=== PATIENT | female | born 1990 | race Caucasian/White ===

== ENCOUNTER 2024-07-24 09:28 | Outpatient (AMB) | payer OTHER, SELFPAY ==
--- NOTE | 2024-07-24 09:30 | MHC.PC.OV ---
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 Maker Required: No Allergies contrast dye Allergy (Severe, Uncoded 07/24/24 09:34) elevated heart rate Tobacco use date assessed: 07/24/24 Dental Screening Dental Screen Date: 07/24/24 Did you have a dental visit in the last 12 months?: Yes Did you have a dental problem in the last 6 months where you did not have access to dental care?: No Was dental information given to patient?: Patient has dentist HPI HPI Comments History of Present Illness Details 33-year-old female with a past medical history of PCOS, arachnoid cyst, seizure, low blood pressure and palpitations [facility]. She transferred from [facility], but she is a new patient to [facility]. She lives with her and her 2 sons. Her last physical exam was in September or October of 2023, but she did not have blood work done. Patient is seeing Dr. Alvarez for low blood pressure and palpitations. She reports she had a Holter monitor which showed premature atrial or ventricular contractions. Symptoms began about a year ago. She has a tilt test scheduled next week. Patient said she had an echocardiogram which showed something that was abnormal. She had a negative stress test. No syncope or chest pain. Patient has 2 children. She has PCOS. They are trying for a 3rd, but if they try for a year on successfully she does not plan to pursue it further. 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 Patient was followed by [facility] Neurology. She had a seizure a few years ago after a flight. This led to a diagnosis of an arachnoid cyst. They told her that the pressure descending on the plane and the location of the arachnoid cyst caused the seizure. She was never prescribed anticonvulsive medication. They told her to avoid activities like scuba diving. She was having an MRI done yearly because she had headaches, but the headaches stopped, and then she was discharged from Neurology follow up instructed to return if she has recurrent headaches or other concerning symptoms. Declines influenza vaccine. ROS: Constitutional: No unexplained weight loss, fever, chills, fatigue or night sweats. Eyes: No vision changes, blurry vision, double vision, eye pain, eye redness, eye discharge. ENT: No hearing loss, sneezing, congestion, runny nose or sore throat. Respiratory: No shortness of breath, cough or sputum production. Cardiovascular: No chest pain or pedal edema. See HPI. Neurologic: No headache, syncope, unilateral weakness, ataxia, numbness or tingling in the extremities. Psychiatric: No depression or anxiety. Physical exam: Constitutional: Alert, in no distress. Neck: Supple, Full range of motion. No lymphadenopathy. No palpable thyroid masses. Respiratory: Clear to auscultation. Cardiovascular: S1 S2 regular. No murmurs. Gastrointestinal: Abdomen soft, non-tender, non-distended. Normal bowel sounds. No palpable masses. Neurologic: No focal neurological deficits. Psychiatric: Normal mood and affect [facility] Medical History (Updated 07/24/24 @ 10:44 by CHERI Mcmullen) Low blood pressure Palpitations PCOS (polycystic ovarian syndrome) Arachnoid cyst Seizure Surgical History (Updated 07/24/24 @ 10:44 by CHERI Mcmullen) H/O section Family History (Updated 07/24/24 @ 09:35 by Santa Emanuel CMA) Mother Lung cancer Social History (Updated 07/24/24 @ 09:36 by Santa Emanuel CMA) Housing: House Alcohol intake: current Patient Tobacco Use Status: Never used Tobacco e-Cigarette/Vaping Use: Never Used Second Hand Smoke Exposure: Yes (past) service: No Current occupational status: employed and unemployed 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 1. Little interest or pleasure in doing things: not at all 2. Feeling down, depressed, or hopeless: not at all 3. Trouble falling or staying asleep, or sleeping too much: not at all 4. Feeling tired or having little energy: several days 5. Poor appetite or overeating: several days 6. Feeling bad about yourself - or that you are a failure or have let yourself or your family down: not at all 7. Trouble concentrating on things, such as reading the newspaper or watching television: not at all 8. Moving or speaking so slowly that other people could have noticed. Or the opposite - being so fidgety or restless that you have been moving around a lot more than usual: not at all 9. Thoughts that you would be better off or of hurting yourself in some way: not at all Total score: 2 Depression Screening Interpretation: Negative Depression Screening Done: Yes 25493 - PHQ-9 Billing: Yes Source: Developed by Drs. Luis Cotter, Fanny Mobley, Carlos Hathaway and colleagues, with an educational ricci from [employer]. Thrive Questionnaire Date Thrive assessed: 07/17/24 I am a: Patient What is your living situation today?: I have a steady place to live Within the past 12 months, did the food you bought not last and you didn't have the money to get more?: Never true Within the past 12 months, did you worry whether your food would run out before you got money to buy more?: Never true Do you have trouble paying for medicines?: No Do you have trouble getting transportation to medical appointments?: No Do you have trouble paying your heating and electricity bill?: No Do you have trouble taking care of your child, family member or friend?: No Do you have trouble with day-to-day activities such as bathing, preparing meals, shopping, managing finances, etc.?: No Are you currently unemployed and looking for a job?: No Are you interested in more education?: Yes Please select the resources that you would like help with: None Currently or been in a relationship where the following occur: No concerns reported THRIVE Score: 0 AUDIT C Alcohol Use Questionnaire (AUDIT-C) 1. How often do you have a drink containing alcohol?: Monthly or less 2. How many drinks containing alcohol do you have on a typical day when you are drinking?: 1 or 2 3. How often do you have six or more drinks on one occasion?: Never Total Score: 1 AVIVA-7 AMB Questionnaire AVIVA-7 Date AVIVA - 7 assessed: 07/24/24 Feeling nervous, anxious, or on edge: 0 = Not at all Not being able to stop or control worryin = Several days Worrying too much about different things: 1 = Several days Trouble relaxin = Several days Being so restless that it is hard to sit still: 1 = Several days Becoming easily annoyed or irritable: 1 = Several days Feeling afraid as if something awful might happen: 0 = Not at all Total AVIVA-7 score (0-4 normal; 5-9 mild; 10-14 moderate; 15-21 severe): 5 Source: Developed by Drs. Luis Cotter, Fanny Mobley, Carlos Hathaway and colleagues, with an educational ricci from [employer]. AVIVA-7 Assessment Billing AVIVA-7 Assessment Tool: AVIVA-7 Assessment 76362 Physical exam (Primary Care) Vital Signs: Last Vital Signs Pulse 66 07/24/24 09:37 BP 86/62 L 07/24/24 09:37 Pulse Ox 97 07/24/24 09:37 Oxygen Delivery Method Room Air 07/24/24 09:37 BMI result Body Mass Index 29.8 Tobacco/Smoking Status: Tobacco use Status Tobacco use date assessed 07/24/24 07/24/24 09:39 Patient Tobacco Use Status Never used Tobacco 07/24/24 09:39 e-Cigarette/Vaping Use Never Used 07/24/24 09:39 PHQ-9: PHQ-9 Score PHQ-9: Total score 2 07/24/24 09:39 Depression Screening Interpretation: Negative Thrive Assessment: Date of Thrive Assessment Date Thrive assessed 07/17/24 07/24/24 09:32 Currently or been in a relationship where the following occur: No concerns reported Coding Level of Care Code New Pt Level 4 (60271) Complex EM visit Add On G2211 Diagnoses Low blood pressure I95.9 Palpitations R00.2 PCOS (polycystic ovarian syndrome) E28.2 Arachnoid cyst G93.0 Seizure R56.9 Additional Codes AVIVA-7 Assessment Billing - AVIVA-7 Assessment Tool: AVIVA-7 Assessment 29277 ([id number]) PHQ-9 - 95194 - PHQ-9 Billing: Yes ([id number]) Assessment & Plan Assessment & Plan (1) Low blood pressure: Code(s): I95.9 - Hypotension, unspecified Category: Medical (2) Palpitations: Code(s): R00.2 - Palpitations Category: Medical (3) PCOS (polycystic ovarian syndrome): Code(s): E28.2 - Polycystic ovarian syndrome Category: Medical (4) Arachnoid cyst: Code(s): G93.0 - Cerebral cysts Category: Medical (5) Seizure: Code(s): R56.9 - Unspecified convulsions Category: Medical Plan Awaiting transfer records from [facility] primary care, [facility] Neurology and [facility] Cardiology. She will schedule a physical exam for 2024. She will have fasting labs completed. She is followed by Cardiology for low blood pressure and palpitations. Tilt test is scheduled next week. I will review the notes from Neurology, but per patient she does not have to follow up or have additional MRI unless she develops headaches or other symptoms. Orders: Orders Cortisol Random Today E28.2 - Polycystic ovarian syndrome, G93.0 - Cerebral cysts, I95.9 - Hypotension, unspecified, R00.2 - Palpitations, R56.9 - Unspecified convulsions, Z13.6 - Encounter for screening for cardiovascular disorders Magnesium Today E28.2 - Polycystic ovarian syndrome, G93.0 - Cerebral cysts, I95.9 - Hypotension, unspecified, R00.2 - Palpitations, R56.9 - Unspecified convulsions, Z13.6 - Encounter for screening for cardiovascular disorders Complete Blood Count no Diff Today E28.2 - Polycystic ovarian syndrome, G93.0 - Cerebral cysts, I95.9 - Hypotension, unspecified, R00.2 - Palpitations, R56.9 - Unspecified convulsions, Z13.6 - Encounter for screening for cardiovascular disorders TSH reflex Free T4 Today E28.2 - Polycystic ovarian syndrome, G93.0 - Cerebral cysts, I95.9 - Hypotension, unspecified, R00.2 - Palpitations, R56.9 - Unspecified convulsions, Z13.6 - Encounter for screening for cardiovascular disorders Lipid Panel Today E28.2 - Polycystic ovarian syndrome, E78.5 - Hyperlipidemia, unspecified, G93.0 - Cerebral cysts, I95.9 - Hypotension, unspecified, R00.2 - Palpitations, R56.9 - Unspecified convulsions, Z13.6 - Encounter for screening for cardiovascular disorders Comprehensive Met. Panel Today E28.2 - Polycystic ovarian syndrome, G93.0 - Cerebral cysts, I95.9 - Hypotension, unspecified, R00.2 - Palpitations, R56.9 - Unspecified convulsions, Z13.6 - Encounter for screening for cardiovascular disorders
[2024-07-24 09:37] VITALS: BP 86/62; PULSE 66; O2SAT 97; BMI 29.8
== END 2024-07-24 10:18 | disposition home or self-care (01) ==
PROVIDERS: PCP Physician Assistant Medical; Visit Provider Physician Assistant Medical
DX: I95.9 Hypotension, unspecified (principal); R00.2 Palpitations; R56.9 Unspecified convulsions; E28.2 Polycystic ovarian syndrome; G93.0 Cerebral cysts

== ENCOUNTER → 2024-07-24 09:28 | Outpatient (BNVA) | payer OTHER, SELFPAY | PROVIDERS: PCP Physician Assistant Medical; Visit Provider Physician Assistant Medical | DX: I95.9 Hypotension, unspecified (principal); R00.2 Palpitations; E28.2 Polycystic ovarian syndrome; G93.0 Cerebral cysts; R56.9 Unspecified convulsions | CPT/HCPCS: 96127 ==

== ENCOUNTER 2024-07-28 08:09 | Outpatient (REF) | payer OTHER, SELFPAY ==
[2024-07-28 11:55] LABS: Hematocrit 41.4 % (37.0-47.0); Hemoglobin 13.8 g/dl (12.0-16.0); Mean Corpuscular HGB Conc 33.3 g/dl (31.0-35.0); Mean Corpuscular Hemoglobin 31.7 pg (27.0-33.0); Platelet Count 193 X10*3/uL (160-400); Red Blood Count 4.36 X10*6/uL (4.20-5.50); Red Cell Distribution Width 12.2 % (11.0-16.0); White Blood Count 4.4 X10*3/uL (4.8-10.8)
[2024-07-28 12:19] LABS: Alanine Aminotransferase 20 U/L (0-31); Albumin Level 4.2 g/dL (3.5-5.0); Alkaline Phosphatase 54 U/L (39-117); Anion Gap 8 (12-20); Aspartate Amino Transferase 19 U/L (5-31); Bilirubin Total 0.8 mg/dL (0.0-1.0); Blood Urea Nitrogen 11 mg/dL (9-16); Calcium 9.2 mg/dL (8.4-10.2); Carbon Dioxide 28 mmol/L (22-29); Chloride 107 mmol/L (96-108); Cholesterol 194 mg/dL (<200); Estimated Glomerular Filt Rate > 60; Glucose Random 87 mg/dL (60-115); HDL Cholesterol 39 mg/dL (>40); LDL Cholesterol Calculated 136 mg/dL (<100); Potassium 3.9 mmol/L (3.3-5.1); Sodium 139 mmol/L (135-145); Total Protein 7.1 g/dL (6.5-8.0); Triglycerides 97 mg/dL (<150)
[2024-07-28 12:25] LABS: Cortisol Random 18.9 ug/dL
[2024-07-28 12:46] LABS: TSH reflex Free T4 2.44 uIU/mL (0.32-4.0)
== END 2024-07-28 08:10 | disposition home or self-care (01) ==
LOC: HO.WFDLDS 08:09
PROVIDERS: Visit Provider Physician Assistant Medical
DX: I95.9 Hypotension, unspecified (principal); R56.9 Unspecified convulsions; G93.0 Cerebral cysts; E28.2 Polycystic ovarian syndrome; R00.2 Palpitations; Z13.6 Encounter for screening for cardiovascular disorders
CPT/HCPCS: 36415; 80053; 80061; 82533; 83735; 84443; 85027

== ENCOUNTER 2024-09-18 08:42 | Outpatient (AMB) | payer OTHER, SELFPAY ==
--- NOTE | 2024-09-18 08:56 | MHC.PC.OV ---
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: No Is last menstrual period known: Yes Last menstrual period: 08/27/24 Post menopausal: No Patient : No Allergies contrast dye Allergy (Severe, Uncoded 07/24/24 09:34) elevated heart rate Tobacco use date assessed: 09/18/24 Dental Screening Dental Screen Date: 09/18/24 Did you have a dental visit in the last 12 months?: Yes Did you have a dental problem in the last 6 months where you did not have access to dental care?: No Was dental information given to patient?: Patient has dentist HPI HPI Comments History of Present Illness Details The patient is a 33-year-old female with a past medical history of Polycystic Ovary Syndrome (PCOS), an arachnoid cyst, seizures, palpitations, and low blood pressure presenting for a sick visit. Her symptoms conjunctivitis began yesterday with the presence of yellow discharge and crustiness in the left eye. Today the right eye is also looking pink and was crusty. She does not wear contacts. She denies vision loss and eye pain. The eyes are itchy and irritated. She endorses cough and fatigue that started 09/13/2024. She reports occasional wheezing. She denies shortness of breath other than at the end of a coughing spell. The cough produces yellow mucus. There is no report of nasal congestion, body aches, sinus pain, fever, or chills associated with the cough. The cough has not improved with current interventions which included Vicks, cough drops and Tessalon Perles. She has no pre-existing respiratory disease. The patient's 6-year-old son was recently sick with walking pneumonia. The patient took 2 COVID-19 tests at home. Both were negative. Patient and her are trying to conceive their 3rd child. She went off of her control at the beginning of the summer. She requests referral to Reproductive Endocrinology as she did have difficulty conceiving her 2 children. Patient was informed and verbally consented to the use of an ambient scribe for clinic note documentation during this visit. ROS: Constitutional: No fevers or chills. +fatigue. No night sweats. Eyes: See HPI ENT: No hearing loss, ear pain, sinus pain, runny nose, throat pain. Respiratory: No hemoptysis. See HPI. Cardiovascular: No chest pain, palpitations or pedal edema Gastrointestinal: No anorexia, nausea, vomiting or diarrhea. No abdominal pain Neurologic: No headache, dizziness, syncope Skin: No rash Physical exam: Constitutional: Alert, in no distress. Appears mildly fatigued. Head: Normocephalic. Eyes: Pupils are equal, round and reactive to light. Extraocular muscles intact. Bilateral conjunctival erythema, left more than right. There is yellow crusty discharge in the left eye lashes. Ear, Nose and Throat: Canals clear. TMs normal. Normal nasal mucosa. No nasal discharge. No oral lesions. Neck: Supple, Full range of motion. No lymphadenopathy. Respiratory: Normal respiratory effort. There are no crackles. There was a slight wheeze in the left mid lung which cleared after coughing. No rales. Cardiovascular: S1 S2 regular. No murmurs. Neurologic: No focal neurological deficits. Skin: No rash [facility] Medical History (Updated 09/18/24 @ 11:15 by CHERI Mcmullen) Bilateral conjunctivitis Low blood pressure Palpitations PCOS (polycystic ovarian syndrome) Arachnoid cyst Seizure Surgical History (Updated 07/24/24 @ 10:44 by CHERI Mcmullen) H/O section Family History (Updated 07/24/24 @ 09:35 by Santa Emanuel CMA) Mother Lung cancer Social History (Updated 07/24/24 @ 09:36 by Santa Emanuel CMA) Housing: House Alcohol intake: current Patient Tobacco Use Status: Never used Tobacco e-Cigarette/Vaping Use: Never Used Second Hand Smoke Exposure: Yes (past) Patient : No service: No Current occupational status: employed and unemployed 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 1. Little interest or pleasure in doing things: not at all 2. Feeling down, depressed, or hopeless: not at all 3. Trouble falling or staying asleep, or sleeping too much: not at all 4. Feeling tired or having little energy: several days 5. Poor appetite or overeating: not at all 6. Feeling bad about yourself - or that you are a failure or have let yourself or your family down: not at all 7. Trouble concentrating on things, such as reading the newspaper or watching television: not at all 8. Moving or speaking so slowly that other people could have noticed. Or the opposite - being so fidgety or restless that you have been moving around a lot more than usual: not at all 9. Thoughts that you would be better off or of hurting yourself in some way: not at all Total score: 1 Source: Developed by Drs. Luis Cotter, Fanny Mobley, Carlos Hathaway and colleagues, with an educational ricci from [facility]. Thrive Questionnaire Date Thrive assessed: 09/17/24 I am a: Patient What is your living situation today?: I have a steady place to live Within the past 12 months, did the food you bought not last and you didn't have the money to get more?: Never true Within the past 12 months, did you worry whether your food would run out before you got money to buy more?: Never true Do you have trouble paying for medicines?: No Do you have trouble getting transportation to medical appointments?: No Do you have trouble paying your heating and electricity bill?: No Do you have trouble taking care of your child, family member or friend?: No Do you have trouble with day-to-day activities such as bathing, preparing meals, shopping, managing finances, etc.?: No Are you currently unemployed and looking for a job?: Yes Are you interested in more education?: Yes Please select the resources that you would like help with: None Currently or been in a relationship where the following occur: No concerns reported THRIVE Score: 0 AUDIT C Alcohol Use Questionnaire (AUDIT-C) 1. How often do you have a drink containing alcohol?: Monthly or less 2. How many drinks containing alcohol do you have on a typical day when you are drinking?: 1 or 2 3. How often do you have six or more drinks on one occasion?: Never Total Score: 1 AVIVA-7 AMB Questionnaire AVIVA-7 Date AVIVA - 7 assessed: 07/24/24 Feeling nervous, anxious, or on edge: 0 = Not at all Not being able to stop or control worryin = Not at all Worrying too much about different things: 0 = Not at all Trouble relaxin = Several days Being so restless that it is hard to sit still: 0 = Not at all Becoming easily annoyed or irritable: 0 = Not at all Feeling afraid as if something awful might happen: 0 = Not at all Total AVIVA-7 score (0-4 normal; 5-9 mild; 10-14 moderate; 15-21 severe): 1 Source: Developed by Drs. Luis Cotter, Fanny Mobley, Carlos Hathaway and colleagues, with an educational ricci from [facility]. Physical exam (Primary Care) Vital Signs: Last Vital Signs Temp 98.2 F 09/18/24 08:59 Pulse 82 09/18/24 08:59 Resp 16 09/18/24 08:59 BP 122/70 09/18/24 08:59 Pulse Ox 97 09/18/24 08:59 Oxygen Delivery Method Room Air 09/18/24 08:59 BMI result Body Mass Index 29.9 Tobacco/Smoking Status: Tobacco use Status Tobacco use date assessed 09/18/24 09/18/24 09:01 Patient Tobacco Use Status Never used Tobacco 09/18/24 09:01 e-Cigarette/Vaping Use Never Used 09/18/24 09:01 PHQ-9: PHQ-9 Score PHQ-9: Total score 1 09/18/24 09:01 Thrive Assessment: Date of Thrive Assessment Date Thrive assessed 09/17/24 09/18/24 09:01 Currently or been in a relationship where the following occur: No concerns reported Coding Level of Care Code Est Pt Level 4 (79180) Complex EM visit Add On G2211 Diagnoses PCOS (polycystic ovarian syndrome) E28.2 Bilateral conjunctivitis H10.9 Cough R05.9 Assessment & Plan Assessment & Plan (1) PCOS (polycystic ovarian syndrome): Code(s): E28.2 - Polycystic ovarian syndrome Category: Medical (2) Bilateral conjunctivitis: Code(s): H10.9 - Unspecified conjunctivitis Category: Medical (3) Cough: Code(s): R05.9 - Cough, unspecified Plan Conjunctivitis: Initiated antibiotic eye drops. Patient instructed on maintaining eye hygiene and replacing pillowcases to prevent reinfection. Cough: Considering a potential bronchitis component, prescribed antibiotics due to persistence of symptoms and ordered chest x-ray to be done at [facility] if no improvement in 48 hours. Continue supportive care at home. She has the prescription of Tessalon Perles. Warning signs warranting ER evaluation reviewed. PCOS: Patient has been trying to conceive for approximately 6 months. Refer to reproductive endocrinology. Orders: Orders XR chest 2V Today R05.9 - Cough, unspecified Medications: New polymyxin B sulf-trimethoprim 10,000 unit- 1 mg/mL 1 drp ophthalmic (eye) QID 7 days 10 mL 0RF azithromycin For 250 mg dose pack: take 500 mg today (day 1), then 250 mg for 4 days (days 2-5) PO 6 tabs 0RF
[2024-09-18 08:59] VITALS: BP 122/70; PULSE 82; RESP 16; TEMP 36.8; O2SAT 97; BMI 29.9
== END 2024-09-18 09:21 | disposition home or self-care (01) ==
PROVIDERS: PCP Physician Assistant Medical; Visit Provider Physician Assistant Medical
DX: E28.2 Polycystic ovarian syndrome (principal); H10.9 Unspecified conjunctivitis; R05.9 Cough, unspecified